=== PATIENT | male | born 1945 | race Hispanic/Latino ===

== ENCOUNTER 2016-10-04 20:33 | Emergency (ER) | payer MEDICARE ==
[2016-10-04 20:33] VITALS: BMI 26.7
[2016-10-04 20:38] VITALS: RESP 20
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
[2016-10-04] MEDS ORDERED: Lidocaine 1% Inj (20ml) ONE (21:55)
[2016-10-04] MEDS ORDERED: Bacitracin 500 Units/gm Oint Foilpak UD ONE (22:17)
[2016-10-04 22:31] VITALS: BP 135/74; PULSE 83; TEMP 98.3
[2016-10-05 01:26] VITALS: O2SAT 99
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
== END 2016-10-04 22:42 | disposition home or self-care (01) ==
LOC: C.ER 20:33
DX: S01.21XA Laceration without foreign body of nose, initial encounter (principal); S02.2XXA Fracture of nasal bones, initial encounter for closed fracture; Y08.89XA Assault by other specified means, initial encounter

== ENCOUNTER 2016-10-12 10:31 | Emergency (ER) | payer MEDICARE ==
[2016-10-12 10:31] VITALS: BMI 26.7
[2016-10-12 10:47] VITALS: BP 152/67; PULSE 84; RESP 20; TEMP 98.4; O2SAT 100
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
== END 2016-10-12 11:27 | disposition home or self-care (01) ==
LOC: C.ER 10:31
DX: Z48.02 Encounter for removal of sutures (principal)

== ENCOUNTER 2016-11-08 09:23 | Emergency (ER) | payer MEDICARE ==
[2016-11-08 09:23] VITALS: BMI 26.7
[2016-11-08] MEDS ORDERED: Aluminum Hydroxide/Magnesium Hydroxide Susp (30 mL) PO STA (10:33)
[2016-11-08] MEDS ORDERED: Sodium Chloride 0.9% 500 ML IV ONE ×3 (10:33→14:15)
[2016-11-08] MEDS ORDERED: Lidocaine 2% Viscous 100 ml PO STA (10:33)
[2016-11-08] MEDS ORDERED: Sodium Chloride 0.9% 1,000 ML ONE (10:42)
[2016-11-08] MEDS ORDERED: Aluminum Hydroxide/Magnesium Hydroxide Susp (30 mL) ONE (10:42)
--- NOTE | 2016-11-08 10:42 | C.PDOC ---
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 Also reports bilateral lower extremity edema. Denies headache, fever, chills, vomiting, nausea, SOB, chest pain or any other complaints. Time Seen by Provider: 11/08/16 10:09 Chief Complaint (Nursing): Lower Extremity Problem/Injury History Per: Patient History/Exam Limitations: no limitations Onset/Duration Of Symptoms: Days Current Symptoms Are (Timing): Still Present Severity: Moderate Recent travel outside of the [place]: No Past Medical History Reviewed: Historical Data, Nursing Documentation, Vital Signs Vital Signs: Last Vital Signs Temp 98.3 F 11/08/16 12:02 Pulse 63 11/08/16 12:02 Resp 20 11/08/16 12:02 BP 136/79 11/08/16 12:02 Pulse Ox 96 11/08/16 14:28 - Medical History PMH: CHF, COPD (not confirmed), Fractures (foot), HTN, Malignancy (COLON CANCER) - [facility] Procedures INSERTION OF TOTALLY IMPLANTABLE VASC ACCESS DEVIC (01/07/15) INTESTINAL ANASTOM NOS (10/01/14) OPEN AND OTHER SIGMOIDECTOMY (10/01/14) OPEN BIOPSY OF LIVER (10/01/14) Family History: States: Unknown Family Hx - Social History Hx Tobacco Use: Yes Hx Alcohol Use: Yes (HISTORY) Hx Substance Use: No - Immunization History Hx Tetanus Toxoid Vaccination: No Hx Influenza Vaccination: No Hx Pneumococcal Vaccination: No Review Of Systems Except As Marked, All Systems Reviewed And Found Negative. Constitutional: Positive for: Weakness. Negative for: Fever, Chills Cardiovascular: Negative for: Chest Pain Respiratory: Negative for: Shortness of Breath Gastrointestinal: Positive for: Abdominal Pain, Diarrhea. Negative for: Nausea , Vomiting Musculoskeletal: Positive for: Other (bilateral lower extremity edema) Neurological: Negative for: Headache Physical Exam - Physical Exam Appears: Non-toxic, No Acute Distress, Chronically Ill Skin: Warm, Dry, Pale, No Rash Head: Atraumatic, Normacephalic Eye(s): bilateral: Conjunctiva Pale Nose: Normal Oral Mucosa: Dry (mild) Neck: Normal ROM, Supple Chest: Symmetrical Cardiovascular: Rhythm Regular, No Murmur Respiratory: Normal Breath Sounds, No Rales, No Rhonchi, No Wheezing Gastrointestinal/Abdominal: Soft, Tenderness (diffuse mild tenderness), Distention (slight), No Guarding, No Rebound, Other (midline incision scar) Extremity: Normal ROM, Pedal Edema (++ pitting edema bilateral lower extremities with tenderness, L>R.), Capillary Refill (<2 seconds) Pulses: Left Dorsalis Pedis: Normal, Right Dorsalis Pedis: Normal Neurological/Psych: Oriented x3, Normal Motor, Normal Sensation ED Course And Treatment - Laboratory Results Result Diagrams: 11/08/16 10:50 11/08/16 10:50 O2 Sat by Pulse Oximetry: 96 (room air) Pulse Ox Interpretation: Normal - CT Scan/US CT abdomen Other Rad Studies (CT/US): Read By Radiologist, Radiology Report Reviewed CT/US Interpretation: Accession No. : [id number]. Patient Name / ID : JESUS FERNANDEZ / [id number]. Exam Date : 11/08/2016 12:16:55 ( Approved ) . Study Comment : Sex / Age : M / 71Y. Creator : Adilene Thomason MD. Dictator : Adilene Thomason MD. Manager Icu : Wire Steward : Adilene Thomason MD. Approver2 : Report Date : 11/08/2016 12:52:37. My Comment : . PROCEDURE: CT Abdomen and Pelvis without Oral or IV contrast. HISTORY : abd pain. COMPARISON: CT of the abdomen and pelvis with oral and IV contrast performed 07/05/16. TECHNIQUE: Contiguous axial images of the abdomen and pelvis. No oral or IV contrast administered. Coronal and Sagittal reformats generated. Radiation dose: Total exam DLP = 635.8 mGy-cm. This CT exam was performed using one or more of the following dose reduction techniques : Automated exposure control, adjustment of the mA and/or kV according to patient size, and/or use of iterative reconstruction technique. FINDINGS: There is limited evaluation of the solid organs without the administration of IV contrast. LOWER THORAX: No visible consolidation, pleural effusion, or pneumothorax. Multiple pulmonary nodules. For example,. For example: 15 mm right middle lobe pulmonary nodule (series 5, image 11). 8 mm right middle lobe pulmonary nodule (series 5, image 11). 10 mm right lower lobe pulmonary nodule (series 5, image 31). Small hiatal hernia. LIVER: Hepatomegaly. Heterogeneous hepatic parenchyma with innumerable mostly hypodense masses several of which contain high density material either calcification or sequela of prior treatment. Appearance consistent with metastatic disease. GALLBLADDER AND BILE DUCTS: Unremarkable. PANCREAS: Fatty atrophy. SPLEEN: Splenomegaly. ADRENALS: Unremarkable. KIDNEYS AND URETERS: No hydronephrosis or obstructing renal calculus. BLADDER: The urinary bladder appears unremarkable. REPRODUCTIVE: Enlarged lobulated appearance of the prostate gland. Bilateral hydroceles. APPENDIX: The appendix is not identified. BOWEL: The stomach is nondistended. Lack of oral contrast limits evaluation for bowel pathology. The bowel loops appear within normal limits of caliber without evidence of intestinal obstruction. PERITONEUM: Small to moderate abdominal and pelvic ascites. No definite free air. LYMPH NODES: Mesenteric, retroperitoneal, and pia hepatis lymphadenopathy. Evaluation for adenopathy is limited due to lack of IV contrast. VASCULATURE: Dense atherosclerotic calcifications of the aorta. No aortic aneurysm. BONES: Extensive degenerative changes. Facet hypertrophy. Severe diffuse osseous demineralization. If clinical concern for osseous metastases, recommend correlation with nuclear medicine bone scan. OTHER FINDINGS: None. IMPRESSION : Hepatomegaly. Splenomegaly. Heterogeneous innumerable masses compatible with metastatic disease containing either calcification or high density material sequela of prior treatment. Correlate clinically. Innumerable pulmonary nodules within the lung bases as above measuring up to 15 mm ; appearance consistent with pulmonary metastatic disease. Mesenteric, retroperitoneal, and pia hepatis lymphadenopathy. Small to moderate abdominal and pelvic ascites. Additional findings as above. Medical Decision Making Medical Decision Making: Discussed case with Dr. Lara who states he spoke to Dr. Montoya. Plan: CT abd, EKG, labs, UA, bilateral lower extremity doppler, IV fluids Spoke with DR. Montoya, Patient with chronic findings, no DVT Disposition Discussed With : Rosalie Montoya Counseled Patient/Family Regarding: Studies Performed, Diagnosis, Need For Followup, Rx Given - Disposition Disposition: HOME/ ROUTINE Disposition Time: 13:41 Condition: GUARDED Additional Instructions: Follow up with Dr. Montoya Monday. Take medications as directed. Return to the Emergency Department with any further complaints. Prescriptions: Dicyclomine [Bentyl] 1 tab PO TID PRN #30 tab PRN Reason: .abd pain Instructions: Enteritis (ED) Forms: General Discharge Instructions - POA Present On Arrival: None - Clinical Impression Clinical Impression: Colon cancer, Diarrhea - Scribe Statement The provider has reviewed the documentation as recorded by the Roselyn bob Provider Attestation: All medical record entries made by the Roselyn were at my direction and personally dictated by me. I have reviewed the chart and agree that the record accurately reflects my personal performance of the history, physical exam, medical decision making, and the department course for this patient. I have also personally directed, reviewed, and agree with the discharge instructions and disposition.
[2016-11-08 11:00] LABS: BASO # 0.1 K/uL (0.0-0.2); BASO % 1.1 % (0.0-2.0); EOS # 0.1 K/uL (0.0-0.7); EOS % 0.7 % (0.0-4.0); HEMATOCRIT 29.7 % (35.0-51.0); LYMPH # 0.7 K/uL (1.0-4.3); LYMPH % 8.6 % (20.0-40.0); MEAN CORPUSCULAR HGB CONC 32.2 g/dL (33.0-37.0); MONO # 0.9 K/uL (0.0-0.8); MONO % 10.9 % (0.0-10.0); NRBC % 0.1 % (0.0-2.0); PLATELET COUNT 219 K/uL (130-400); RED CELL DISTRIBUTION WIDTH 18.7 % (11.5-14.5); WHITE BLOOD COUNT 8.2 K/uL (4.8-10.8)
[2016-11-08 11:04] LABS: CHLORIDE 98 mmol/L (98-107); MEAN CELL VOLUME 80.9 fL (80.0-94.0)
[2016-11-08 11:05] LABS: POTASSIUM 3.3 mmol/L (3.6-5.2); SODIUM 140 mmol/L (132-148)
[2016-11-08 11:07] LABS: GFR AFRICAN-AMERICAN > 60
[2016-11-08 11:08] LABS: ALB/GLOB RATIO 1.2 (1.0-2.1); ALKALINE PHOSPHATASE 679 U/L (38-126); ALT/SGPT 33 U/L (21-72); AST/SGOT 61 U/L (17-59); BILIRUBIN,TOTAL 1.3 mg/dL (0.2-1.3); BLOOD UREA NITROGEN 11 mg/dL (9-20); CALCIUM 8.7 mg/dl (8.6-10.4); CARBON DIOXIDE 29 mmol/L (22-30); GLUCOSE,RANDOM 102 mg/dL (75-110); TOTAL PROTEIN 6.4 g/dL (6.3-8.3)
[2016-11-08 12:22] LABS: NEUTROPHIL 84 % (50-75); TOTAL CELLS COUNTED 100
--- NOTE | 2016-11-08 12:54 | CT ---
PROCEDURE: CT Abdomen and Pelvis without Oral or IV contrast. HISTORY: abd pain COMPARISON: CT of the abdomen and pelvis with oral and IV contrast performed 07/05/16 TECHNIQUE: Contiguous axial images of the abdomen and pelvis. No oral or IV contrast administered. Coronal and Sagittal reformats generated. Radiation dose: Total exam DLP = 635.8 mGy-cm. This CT exam was performed using one or more of the following dose reduction techniques: Automated exposure control, adjustment of the mA and/or kV according to patient size, and/or use of iterative reconstruction technique. FINDINGS: There is limited evaluation of the solid organs without the administration of IV contrast. LOWER THORAX: No visible consolidation, pleural effusion, or pneumothorax. Multiple pulmonary nodules. For example, For example: 15 mm right middle lobe pulmonary nodule (series 5, image 11). 8 mm right middle lobe pulmonary nodule (series 5, image 11). 10 mm right lower lobe pulmonary nodule (series 5, image 31) Small hiatal hernia. LIVER: Hepatomegaly. Heterogeneous hepatic parenchyma with innumerable mostly hypodense masses several of which contain high density material either calcification or sequela of prior treatment. Appearance consistent with metastatic disease. GALLBLADDER AND BILE DUCTS: Unremarkable. PANCREAS: Fatty atrophy. SPLEEN: Splenomegaly. ADRENALS: Unremarkable. KIDNEYS AND URETERS: No hydronephrosis or obstructing renal calculus. BLADDER: The urinary bladder appears unremarkable. REPRODUCTIVE: Enlarged lobulated appearance of the prostate gland. Bilateral hydroceles. APPENDIX: The appendix is not identified. BOWEL: The stomach is nondistended. Lack of oral contrast limits evaluation for bowel pathology. The bowel loops appear within normal limits of caliber without evidence of intestinal obstruction. PERITONEUM: Small to moderate abdominal and pelvic ascites. No definite free air. LYMPH NODES: Mesenteric, retroperitoneal, and pia hepatis lymphadenopathy. Evaluation for adenopathy is limited due to lack of IV contrast. VASCULATURE: Dense atherosclerotic calcifications of the aorta. No aortic aneurysm. BONES: Extensive degenerative changes. Facet hypertrophy. Severe diffuse osseous demineralization. If clinical concern for osseous metastases, recommend correlation with nuclear medicine bone scan. OTHER FINDINGS: None. IMPRESSION: Hepatomegaly. Splenomegaly. Heterogeneous innumerable masses compatible with metastatic disease containing either calcification or high density material sequela of prior treatment. Correlate clinically. Innumerable pulmonary nodules within the lung bases as above measuring up to 15 mm ; appearance consistent with pulmonary metastatic disease. Mesenteric, retroperitoneal, and pia hepatis lymphadenopathy. Small to moderate abdominal and pelvic ascites. Additional findings as above.
[2016-11-08 13:40] LABS: URINE BILIRUBIN NEGATIVE (NEGATIVE); URINE BLOOD NEGATIVE (NEGATIVE); URINE COLOR Yellow (YELLOW); URINE GLUCOSE (UA) NORMAL (Normal); URINE KETONE NEGATIVE (NEGATIVE); URINE LEUKOCYTE ESTERASE NEG Leu/uL (Negative); URINE PROTEIN NEGATIVE (NEGATIVE); WBC URINE < 1 /hpf (0-5)
[2016-11-08] MEDS ORDERED: Belladonna-Phenobarbital PO STA (13:41)
[2016-11-08] MEDS ORDERED: Belladonna-Phenobarbital ONE (14:15)
[2016-11-08 15:17] VITALS: BP 151/84; PULSE 62; RESP 18; TEMP 97.9; O2SAT 99
--- NOTE | 2016-11-08 18:43 | VASCLAB ---
PROCEDURE: Lower Extremity Venous Duplex Exam. HISTORY: CA, LE swelling PRIORS: None. TECHNIQUE: Bilateral common femoral, femoral, popliteal and posterior tibial, peroneal and great saphenous veins were evaluated. Flow was assessed with color Doppler, compressibility, assessment of phasic flow and augmentation response. Report prepared by Alexandro Abbott, BS, RVT FINDINGS: RIGHT: 1. Common Femoral Vein: 1.1. Compressibility - Fully compressible: Thrombus - None : Flow - Phasic: Augmentation -Normal: Reflux - None. 2. Femoral Vein: 2.1. Compressibility - Fully compressible: Thrombus - None : Flow - Phasic: Augmentation -Normal: Reflux - None. 3. Popliteal Vein: 3.1. Compressibility - Fully compressible: Thrombus - None : Flow - Phasic: Augmentation -Normal: Reflux - Severe. 4. Posterior Tibial Vein: 4.1. Compressibility - Fully compressible: Thrombus - None: Flow - Phasic: Augmentation -Normal: Reflux - None. 5. Peroneal Vein: 5.1. Compressibility - Fully compressible: Thrombus - None: Flow - Phasic: Augmentation -Normal: Reflux - None. 6. Great Saphenous Vein: 6.1. Compressibility - Fully compressible: Thrombus - None: Flow - Phasic: Augmentation - Normal: Reflux - None. LEFT: 1. Common Femoral Vein: 1.1. Compressibility - Fully compressible: Thrombus - None: Flow - Phasic: Augmentation -Normal: Reflux - None. 2. Femoral Vein: 2.1. Compressibility - Fully compressible: Thrombus - None: Flow - Phasic: Augmentation -Normal: Reflux - None. 3. Popliteal Vein: 3.1. Compressibility - Fully compressible: Thrombus - None : Flow - Phasic: Augmentation -Normal: Reflux - Severe. 4. Posterior Tibial Vein: 4.1. Compressibility - Fully compressible: Thrombus - None: Flow - Phasic: Augmentation -Normal: Reflux - None. 5. Peroneal Vein: 5.1. Compressibility - Fully compressible: Thrombus - None: Flow - Phasic: Augmentation -Normal: Reflux - None. 6. Great Saphenous Vein: 6.1. Compressibility - Fully compressible: Thrombus - None: Flow - Phasic: Augmentation - Normal: Reflux - None. OTHER FINDINGS: Right: Severe valvular incompetence of the right popliteal vein. Left: Severe valvular incompetence of the left popliteal vein. IMPRESSION: Right: No evidence of deep or superficial vein thrombosis of the right lower extremity. Left: No evidence of deep or superficial vein thrombosis of the left lower extremity.
--- NOTE | 2016-11-09 10:58 | CARD ---
APPROVED REPORT EKG Measurement Heart [id number] <Conclusion> Sinus rhythm with occasional premature ventricular complexes and premature atrial complexes Low voltage QRS Prolonged QT Abnormal ECG
== END 2016-11-08 15:17 | disposition home or self-care (01) ==
LOC: C.ER 09:23
DX: R19.7 Diarrhea, unspecified (principal); C18.9 Malignant neoplasm of colon, unspecified
CPT/HCPCS: 74176; 80053; 81001; 83690; 85025; 93005; 93970; 96360; 99285; J7040

== ENCOUNTER 2016-12-13 12:31 | Emergency (ER) | payer MEDICARE ==
[2016-12-13 12:34] VITALS: BMI 22.8
[2016-12-13] MEDS ORDERED: Iohexol 240 (50 ml) PO STA (13:51)
[2016-12-13] MEDS ORDERED: Sodium Chloride 0.9% 500 ML IV ONE ×2 (13:51→14:03)
[2016-12-13] MEDS ORDERED: Morphine 4 MG/ML VIAL ONE (14:02)
[2016-12-13] MEDS ORDERED: Iohexol 240 (50 ml) ONE (14:02)
[2016-12-13 14:06] LABS: BASO # 0.1 K/uL (0.0-0.2); BASO % 0.7 % (0.0-2.0); EOS % 0.2 % (0.0-4.0); HEMATOCRIT 34.6 % (35.0-51.0); LYMPH # 0.9 K/uL (1.0-4.3); LYMPH % 10.8 % (20.0-40.0); MEAN CELL VOLUME 79.9 fL (80.0-94.0); MEAN CORPUSCULAR HEMOGLOBIN 25.6 pg (27.0-31.0); MEAN PLATELET VOLUME 7.8 fL (7.2-11.7); MONO % 12.1 % (0.0-10.0); RED CELL DISTRIBUTION WIDTH 19.1 % (11.5-14.5); WHITE BLOOD COUNT 8.2 K/uL (4.8-10.8)
[2016-12-13 14:19] LABS: CHLORIDE 103 mmol/L (98-107)
[2016-12-13 14:20] LABS: POTASSIUM 3.7 mmol/L (3.6-5.2); SODIUM 139 mmol/L (132-148)
[2016-12-13 14:22] LABS: GFR AFRICAN-AMERICAN > 60
[2016-12-13 14:23] LABS: ALB/GLOB RATIO 1.1 (1.0-2.1); ALKALINE PHOSPHATASE 1423 U/L (38-126); ALT/SGPT 37 U/L (21-72); AST/SGOT 60 U/L (17-59); BILIRUBIN,TOTAL 1.9 mg/dL (0.2-1.3); BLOOD UREA NITROGEN 17 mg/dL (9-20); CARBON DIOXIDE 20 mmol/L (22-30); GLUCOSE,RANDOM 125 mg/dL (75-110); TOTAL PROTEIN 6.9 g/dL (6.3-8.3)
[2016-12-13 14:24] LABS: CALCIUM 9.2 mg/dl (8.6-10.4)
[2016-12-13 15:02] LABS: BILIRUBIN,DIRECT 1.2 mg/dL (0.0-0.4)
[2016-12-13] MEDS ORDERED: Iodixanol 320 MG/ML 100 ML BOTTLE IV ONE (15:49)
[2016-12-13 16:46] LABS: RBC URINE < 1 /hpf (0-3); URINE BACTERIA RARE (<OCC); URINE BILIRUBIN NEGATIVE (NEGATIVE); URINE BLOOD NEGATIVE (NEGATIVE); URINE COLOR Amber (YELLOW); URINE GLUCOSE (UA) NORMAL (Normal); URINE HYALINE CAST 0-2 /lpf (0-2); URINE KETONE TRACE mg/dL (NEGATIVE); URINE LEUKOCYTE ESTERASE NEG Leu/uL (Negative); URINE PROTEIN NEGATIVE (NEGATIVE); WBC URINE < 1 /hpf (0-5)
--- NOTE | 2016-12-13 17:24 | CT ---
PROCEDURE: CT Abdomen and Pelvis with Oral or IV contrast. HISTORY: Abdominal pain/distension. Nodular, vomiting, diarrhea. History of colon cancer. Chemotherapy. COMPARISON: CT of the abdomen and pelvis without oral or IV contrast performed 11/08/16 TECHNIQUE: Contiguous axial images of the abdomen and pelvis. 100 mL Visipaque administered. Oral contrast was administered. Coronal and Sagittal reformats generated. Radiation dose: Total exam DLP = 933.58 mGy-cm. This CT exam was performed using one or more of the following dose reduction techniques: Automated exposure control, adjustment of the mA and/or kV according to patient size, and/or use of iterative reconstruction technique. FINDINGS: LOWER THORAX: Multiple pulmonary nodules. For example. 16 mm right middle lobe nodule (series 5, image 11) 16 mm right lower lobe nodular density (series 5, image 28). 5 mm lingular nodule (series 5, image 4). 10 mm left lower lobe nodular density (series 5, image 5). Small right pleural effusion. No visible pneumothorax. Partially imaged dense coronary artery calcifications. Small to moderate hiatal hernia. LIVER: Hepatomegaly. Heterogeneous hepatic parenchyma with innumerable mostly hypodense masses several of which contain high density material either calcification or sequela of prior treatment. Appearance consistent with metastatic disease. GALLBLADDER AND BILE DUCTS: Unremarkable. PANCREAS: Fatty atrophy. SPLEEN: Splenomegaly. ADRENALS: Unremarkable. KIDNEYS AND URETERS: No hydronephrosis or obstructing renal calculus. BLADDER: Distended urinary bladder. REPRODUCTIVE: Enlarged lobulated appearance of the prostate gland. Bilateral hydroceles. APPENDIX: The appendix is not identified. BOWEL: The stomach is nondistended. Lack of oral contrast limits evaluation for bowel pathology. No evidence of bowel obstruction. Anastomotic bowel suture material at the rectosigmoid colon. Severe diffuse constipation. Rectal wall thickening; correlate clinically for proctitis. PERITONEUM: Small to moderate abdominal and pelvic ascites. No definite free air. LYMPH NODES: Mesenteric, retroperitoneal, and pia hepatis lymphadenopathy. VASCULATURE: Dense atherosclerotic calcifications of the aorta. No aortic aneurysm. BONES: Extensive degenerative changes. Facet hypertrophy. Severe diffuse osseous demineralization. If clinical concern for osseous metastases, recommend correlation with nuclear medicine bone scan. OTHER FINDINGS: None. IMPRESSION: Small right pleural effusion. Interval development of severe diffuse constipation. Rectal wall thickening. Correlate clinically for proctitis. Marked urinary bladder distension. Hepatomegaly. Splenomegaly. Heterogeneous innumerable masses compatible with metastatic disease containing either calcification or high density material sequela of prior treatment. Correlate clinically. Innumerable pulmonary nodules within the lung bases as above measuring up to 16 mm ; appearance consistent with pulmonary metastatic disease. Mesenteric, retroperitoneal, and pia hepatis lymphadenopathy. Small to moderate abdominal and pelvic ascites. Enlarged heterogeneous appearance of the prostate gland. Correlate with PSA. Bilateral hydroceles. Additional findings as above.
--- NOTE | 2016-12-13 18:33 | C.PDOC ---
Time Seen by Provider: 12/13/16 13:40 Chief Complaint (Nursing): Abdominal Pain History Per: Patient, Family Onset/Duration Of Symptoms: Days (7) Current Symptoms Are (Timing): Still Present Context: Other (Metastatic colon CA) Severity: Moderate Location Of Pain/Discomfort: Diffuse Quality Of Discomfort: "Pain" Associated Symptoms: Nausea, Vomiting Alleviating Factors: None Last Bowel Movement: Today Additional History Per: Prior Records Past Medical History Reviewed: Historical Data, Nursing Documentation, Vital Signs Vital Signs: Last Vital Signs Temp 97.9 F 12/13/16 17:11 Pulse 90 12/13/16 17:11 Resp 18 12/13/16 17:11 BP 152/95 H 12/13/16 17:11 Pulse Ox 99 12/13/16 17:11 - Medical History PMH: CHF (?), COPD (not confirmed), Fractures (foot), HTN (denies), Malignancy ( COLON CANCER) Other Surgeries: Colon resection - [facility] Procedures INSERTION OF TOTALLY IMPLANTABLE VASC ACCESS DEVIC (01/07/15) INTESTINAL ANASTOM NOS (10/01/14) OPEN AND OTHER SIGMOIDECTOMY (10/01/14) OPEN BIOPSY OF LIVER (10/01/14) Family History: States: Unknown Family Hx - Social History Hx Tobacco Use: Yes Hx Alcohol Use: Yes (HISTORY) Hx Substance Use: No - Immunization History Hx Tetanus Toxoid Vaccination: No Hx Influenza Vaccination: No Hx Pneumococcal Vaccination: No Review Of Systems Except As Marked, All Systems Reviewed And Found Negative. Constitutional: Negative for: Fever Cardiovascular: Positive for: Edema. Negative for: Chest Pain Respiratory: Negative for: Shortness of Breath Gastrointestinal: Positive for: Nausea, Vomiting, Abdominal Pain. Negative for : Diarrhea, Melena, Hematochezia, Hematemesis Genitourinary: Negative for: Dysuria Musculoskeletal: Negative for: Neck Pain, Back Pain Neurological: Negative for: Weakness, Numbness, Seizures, Altered Mental Status , Headache Physical Exam - Physical Exam Appears: Chronically Ill Skin: Warm, Dry Head: Atraumatic Eye(s): bilateral: PERRL, EOMI Neck: Normal ROM, Supple Cardiovascular: Rhythm Regular Respiratory: Normal Breath Sounds, No Accessory Muscle Use Gastrointestinal/Abdominal: Soft, Tenderness (nonspecific), Distention Back: No CVA Tenderness Extremity: Normal ROM, Pedal Edema Neurological/Psych: Oriented x3, Normal Motor, Normal Sensation ED Course And Treatment - Laboratory Results Result Diagrams: 12/13/16 14:00 12/13/16 14:00 Lab Interpretation: Abnormal O2 Sat by Pulse Oximetry: 99 Pulse Ox Interpretation: Normal - CT Scan/US CT abdomen/pelvis Other Rad Studies (CT/US): Read By Radiologist, Radiology Report Reviewed CT/US Interpretation: IMPRESSION: Small right pleural effusion. Interval development of severe diffuse constipation. Rectal wall thickening. Correlate clinically for proctitis. Marked urinary bladder distension. Hepatomegaly. Splenomegaly. Heterogeneous innumerable masses compatible with metastatic disease containing either calcification or high density material sequela of prior treatment. Correlate clinically. Innumerable pulmonary nodules within the lung bases as above measuring up to 16 mm ; appearance consistent with pulmonary metastatic disease. Mesenteric, retroperitoneal, and pia hepatis lymphadenopathy. Small to moderate abdominal and pelvic ascites. Enlarged heterogeneous appearance of the prostate gland. Correlate with PSA. Bilateral hydroceles. Additional findings as above. Progress Note: Pt states he wants to go home. Prognonsis is very poor. I will discharge pt home with Rx as this is what the pt prefers. Progress - Interventions Interventions:: Observation, Intravenous fluid - Medications Administered Intravenous: Antiemetic, Opiate - Data Reviewed Data Reviewed: Lab, Diagnostic imaging, Old records - Patient Status Patient status: Partially improved - Continuity of Care Discussed patient case with:: Patient, Family-HIPPA compliant, ED Nurse - Patient Plan Patient Plan: Discharge, F/U with PCP Disposition Counseled Patient/Family Regarding: Studies Performed, Diagnosis, Need For Followup, Rx Given - Disposition Referrals: Javier Lara MD, PhD [Staff Provider] - Disposition: HOME/ ROUTINE Disposition Time: 18:38 Condition: SERIOUS Additional Instructions: Follow up with your doctor. Return to the ER if you develop fever, vomiting, bleeding, worsening of symptoms or if you have any other concerns. Prescriptions: Acetaminophen/Oxycodone Hydr [Percocet 10/325 mg Tab] 1 tab PO Q4H #30 tab Ondansetron [Zofran] 4 mg PO Q8H PRN #30 tab PRN Reason: Nausea/Vomiting Polyethylene Glycol 3350 [Miralax] 17 gm PO DAILY #7 packet Instructions: Abdominal Pain (ED) - Clinical Impression Clinical Impression: Primary colon cancer with metastasis to other site, Abdominal pain
[2016-12-13 18:56] VITALS: BP 160/89; PULSE 81; RESP 16; TEMP 98.1; O2SAT 98
== END 2016-12-13 18:56 | disposition home or self-care (01) ==
LOC: C.ER 12:31
DX: C18.9 Malignant neoplasm of colon, unspecified (principal); C78.00 Secondary malignant neoplasm of unspecified lung; R10.84 Generalized abdominal pain
CPT/HCPCS: 74177; 80053; 81001; 82248; 82977; 83690; 83880; 84484; 85025; 96361; 96374; 96375; 96376; 99285; C9113; J2270; J2405; J7040; Q9966; Q9967